=== PATIENT | male | born 1970 | race Caucasian/White ===

== ENCOUNTER 2020-08-14 08:06 | Emergency (ER) | payer OTHER ==
[~2020-08-14] VITALS: Ht 172.7 cm; Wt 70.3 kg
[2020-08-14] MEDS ORDERED: Cleocin HCl300 MG PO (09:42)
== END 2020-08-14 10:02 | disposition home or self-care (01) ==
LOC: ER 08:06
DX: K04.7 Periapical abscess without sinus (principal); Z88.0 Allergy status to penicillin
CPT/HCPCS: 99282

== ENCOUNTER 2020-09-30 07:14 | Emergency (ER) | payer OTHER ==
[~2020-09-30] VITALS: Ht 177.8 cm; Wt 77.1 kg
[~2020-09-30 07:14] MED LIST: Cleocin HCl300 MG PO
[2020-09-30] MEDS ORDERED: AZIT500 PO (07:38)
[2020-09-30] MEDS ORDERED: IBUP400 PO (07:38)
== END 2020-09-30 08:00 | disposition home or self-care (01) ==
LOC: ER 07:14
DX: K08.89 Other specified disorders of teeth and supporting structures (principal); F17.210 Nicotine dependence, cigarettes, uncomplicated; Z88.0 Allergy status to penicillin; Z98.890 Other specified postprocedural states
CPT/HCPCS: 99282